=== PATIENT | male | born 1945 | race Caucasian/White ===

== ENCOUNTER 2017-08-16 08:38 | Day surgery (SDC) | payer OTHER, BC ==
[~2017-08-16] VITALS: Ht 182.9 cm; Wt 117.0 kg
[~2017-08-16 08:38] MED LIST: ASPIRIN81 M2 PO; AZO BLADDER CONTROL PO; CIPRO500 MG PO; COREG6.25 M1 PO; CRESTOR20 MG PO; CYANOCOBAL1000 MCG/2 IM; DITROPAN5 MG PO; FLOMAX0.4 MG PO; GABAPENTIN600 MG PO; HYDROCHLOROTHIA25 MG PO; INSPRA50 MG PO; LOTREL 5/201 CAPSULE PO; PROSCAR5 MG PO; PROTONIX40 MG PO; T:SLIM1 EACH MC; TAPAZOLE5 MG PO; TRAMADOL HCL50 MG PO; VITAMIN D33000 UNIT PO
[2017-08-16 09:23] VITALS: BP 121/59
[2017-08-16 17:58] VITALS: BP 108/59
[2017-08-16 19:55] VITALS: BP 113/55
[2017-08-16 23:47] VITALS: BP 111/53
[2017-08-17 06:58] VITALS: BP 116/58
== END 2017-08-17 12:44 | disposition home or self-care (01) ==
LOC: SDC 08:38 → 2SOUTH 12:15 → ENRESERV 12:32 → SDC 14:53 → ENRESERV 14:58 → 5EAST 17:18 → ENPENDDIS 08-17 → 5EAST 08-17 12:44
PROVIDERS: Urology
PROC: 0V508ZZ Destruction of Prostate, Via Natural or Artificial Opening Endoscopic (ICD-10-PCS; principal; 2017-08-16)
DX: N40.1 Benign prostatic hyperplasia with lower urinary tract symptoms (principal); R33.8 Other retention of urine; R97.20 Elevated prostate specific antigen [PSA]; Z85.51 Personal history of malignant neoplasm of bladder; E11.9 Type 2 diabetes mellitus without complications; I10 Essential (primary) hypertension; K21.9 Gastro-esophageal reflux disease without esophagitis; E78.5 Hyperlipidemia, unspecified; Z86.718 Personal history of other venous thrombosis and embolism; M17.0 Bilateral primary osteoarthritis of knee; Z80.1 Family history of malignant neoplasm of trachea, bronchus and lung; Z82.49 Family history of ischemic heart disease and other diseases of the circulatory system; Z88.8 Allergy status to other drugs, medicaments and biological substances; Z91.018 Allergy to other foods; Z91.041 Radiographic dye allergy status; Z79.4 Long term (current) use of insulin
CPT/HCPCS: 82948; 88305; 93005; G0378; J0690; J1170; J1580; J2250; J2405; J7120